=== PATIENT | female | born 1940 | race Caucasian/White ===

== ENCOUNTER 2020-12-05 11:10 | Outpatient (CLI) | payer MEDICARE, SELFPAY ==
[2020-12-05 13:06] LABS: Free T4 Free Thyroxine 1.44 ng/mL (0.78-2.19)
== END 2020-12-05 11:11 | disposition home or self-care (01) ==
LOC: ANHWCLAB 11:15
PROVIDERS: PCP Nurse Practitioner Family; Visit Provider Internal Medicine Endocrinology, Diabetes & Metabolism
DX: E03.9 Hypothyroidism, unspecified (principal)
CPT/HCPCS: 36415; 84439; 84443